=== PATIENT | male | born 1970 | race Two or more races ===

== ENCOUNTER 2018-09-28 14:45 | Emergency (ER) | payer OTHER ==
[~2018-09-28] VITALS: Ht 188 cm; Wt 81.6 kg
[2018-09-28] MEDS ORDERED: NEURONTIN800 MG PO (15:01)
== END 2018-09-28 22:06 | disposition home or self-care (01) ==
LOC: ER 14:45
DX: R42 Dizziness and giddiness (principal)

== ENCOUNTER 2020-08-04 21:25 | Emergency (ER) | payer OTHER ==
[~2020-08-04] VITALS: Ht 188 cm; Wt 81.6 kg
[~2020-08-04 21:25] MED LIST: NEURONTIN800 MG PO
[2020-08-05] MEDS ORDERED: ZYNCOF 20-400120 ML PO ×2 (03:56→03:58)
[2020-08-05] MEDS ORDERED: ALBUTEROL2.5 MG/3 M IH (03:57)
[2020-08-05] MEDS ORDERED: ZITHROMAX500 MG PO ×2 (03:57→03:58)
== END 2020-08-05 04:03 | disposition home or self-care (01) ==
LOC: ER 21:25
DX: J06.9 Acute upper respiratory infection, unspecified (principal); Z03.818 Encounter for observation for suspected exposure to other biological agents ruled out; R05 Cough; R07.89 Other chest pain

== ENCOUNTER 2022-02-14 13:07 | Emergency (ER) | payer OTHER ==
[~2022-02-14] VITALS: Ht 188 cm; Wt 81.6 kg
[~2022-02-14 13:07] MED LIST changes: +ALBUTEROL2.5 MG/3 M IH; +ZITHROMAX500 MG PO; +ZYNCOF 20-400120 ML PO
== END 2022-02-14 15:37 | disposition home or self-care (01) ==
LOC: ER 13:07
DX: L05.01 Pilonidal cyst with abscess (principal)